=== PATIENT | male | born 1940 | race Caucasian/White ===

== ENCOUNTER 2016-12-09 08:32 | Day surgery (SDC) | payer MEDICARE ==
--- NOTE | 2016-12-09 07:35 | History and Physical Report ---
DATE OF EVALUATION: 12/09/2016. CHIEF COMPLAINT AND HISTORY OF CHIEF COMPLAINT: This patient presents with a history of a spinal cord stimulator implant on 09/04/2015. He has had migration with loss of stimulation into the appropriate areas. Due to the inability to, on a conservative level, regain stimulation patterns, he is here for revision. We will attempt to move the leads up or down in an attempt to regain stimulation patterns. If unsuccessful, the system will be removed. PAST MEDICAL HISTORY: Chronic obstructive pulmonary disease. REVIEW OF SYSTEMS: The patient seems appropriate and in no acute distress. The remainder of the systems review shows blood pressure problems, peripheral edema, reflux disease, degenerative arthritis, depression, difficulty sleeping, and difficulty with hearing. SOCIAL AND FAMILY HISTORY: Diabetes, hypertension, caffeine. PAST SURGICAL HISTORY: Lumbar spinal surgery, spinal cord stimulator implant. ALLERGIES: None listed. MEDICATIONS ON ADMISSION: To be provided. PHYSICAL EXAMINATION: General: Height is 5 feet, 7 inches. Weight is 270 pounds. Vital Signs: Unavailable. HEENT: Within normal limits. Lungs: Clear. Heart: Regular rate and rhythm. Abdomen: Nontender. Musculoskeletal: Examination of the musculoskeletal system shows the primary pain to be a postlaminectomy radiculitis with pain moving into both lower extremities. The incisional sites for the leads and generator are both identified and are intact. Sensory jackson are intact. Neurologic: Cranial nerves are intact. IMPRESSIONS: 1. POSTLAMINECTOMY SYNDROME, ICD10 CODE M96.1. 2. LUMBAR RADICULITIS, ICD10 CODE M54.16 AND M54.17. 3. SPINAL CORD STIMULATOR NONFUNCTIONAL. PLANS: The patient is here for revision of the system. If we are unsuccessful in regaining stimulation, the device and the generator will be removed. All of the potential risks, side effects, and complications have been carefully reviewed and discussed. The patient understands and agrees. The procedure will be considered outpatient, although an overnight stay will be evaluated. Heriberto Vega D.O. Date Time JOB NUMBER: [id number] cc: Dr. Linda MCGRATH
[~2016-12-09 08:32] MED LIST: ACETAMINOPHEN 1000MG/100 ML PREMIX IV ONE; CEFAZOLIN 2 Gram 50 ML IVPB ONE; FAMOTIDINE 20MG TABLET PO ONE; MECLIZINE 25 MG TABLET PO ONE; METOCLOPRAMIDE 10 MG TABLET PO ONE
[2016-12-09] MEDS ORDERED: BUPIVACAINE 0.5% W/EPI MPF 30 ML VIAL IVP ONE (13:17)
[2016-12-09] MEDS ORDERED: CEFAZOLIN 1G VIAL IM ONE (13:17)
[2016-12-09] MEDS ORDERED: LIDOCAINE 1% W/EPI 1:200,000 MPF 30ML SQ ONE (13:17)
[2016-12-09] MEDS ORDERED: LIDOCAINE 2% MDV (20MG/ML) 20ML VIAL IV ONE (13:22)
[2016-12-09] MEDS ORDERED: PROPOFOL 10 MG/ML VIAL IV ONE (13:22)
[2016-12-09] MEDS ORDERED: FLUMAZENIL 1MG/10ML VIAL IV ONE (13:22)
[2016-12-09] MEDS ORDERED: MIDAZOLAM HCL 2MG/2ML VIAL IV ONE (13:22)
[2016-12-09] MEDS ORDERED: *PACU ONLY* KETAMINE HCL 10 MG/ML (20ML) VIAL IV ONE (13:22)
[2016-12-09] MEDS ORDERED: FENTANYL PF 100MCG/2ML VIAL IV ONE (13:22)
--- NOTE | 2016-12-10 14:51 | Operative Note - [place] ---
DATE OF SURGERY: 12/09/16 PREOPERATIVE DIAGNOSES: 1. POST LUMBAR LAMINECTOMY SYNDROME, ICD-10 CODE = M96.1. 2. LUMBAR RADICULITIS, ICD-10 CODE = M54.16 AND M54.17. 3. SPINAL CORD STIMULATOR, TWO LEADS, INTERNAL GENERATOR NONFUNCTIONAL. SURGERY: 1. FLUOROSCOPICALLY-GUIDED SUBCUTANEOUS DISSECTION AND REMOVAL OF SPINAL CORD STIMULATOR LEAD 1 AND SPINAL CORD STIMULATOR LEAD 2. 2. FLUOROSCOPICALLY-GUIDED EPIDURAL ACCESS 10/[address] OF INTRODUCER OVER PREVIOUS LEAD. PLACEMENT OF SPINAL CORD STIMULATOR LEAD 1, A [employer] 16 WITH 16 ELECTRODES POSITIONED MIDLINE T7. ATTEMPT TO PUSH LEAD TO T6 UNSUCCESSFUL. 3. COMPLEX PROGRAMMING LEAD 1, 20 MINUTES. 4. REMOVAL OF SPINAL CORD STIMULATOR LEAD 1 UNSUCCESSFUL TRIAL. SURGEON: DIANA PIERRE D.O. ANESTHESIA: LOCAL SEDATION. ANESTHESIA PROVIDER: VIDHYA FLORES CRNA. INDICATION: This patient presents with a history of postlaminectomy radiculitis. Due to the failure of all therapy, a spinal cord stimulator was implanted on 09/04/15. Although initial results appeared to be quite good, over the last several months there appeared to be some migration confirmed by imaging showing the leads now at T7/8. The previous trial location T6 with success. Attempts at programming the system to regain stimulation patterns after the apparent migration were unsuccessful. He was then given the option to remove or revise; he opted to revise. PROCEDURE: Intravenous line, vital sign monitoring, IV sedation. Prepped, draped , sterile technique. Under imaging, the two stimulators were identified. The skin infiltrated, incision made, and subcutaneous dissection was conducted to the anchors. The leads were removed at the generator and pulled into the incisional site at the placement. Attempts to navigate the leads up above T8 were unsuccessful because of what appeared to be an obstruction at the interspace upper end 7. Leads were removed because of unsuccessful stimulation. Using an epidural access guide over one of the two previous removed leads, a new spinal cord stimulator identified as lead 1, a [employer] 16 was advanced under imaging, positioned in the epidural space at the upper endplate of T7. Complex programming of this lead was unsuccessful in getting stimulation patterns into the low back. Attempts to navigate this new lead above the upper endplate T7 were also unsuccessful. The patient had incomplete stimulation. We were unable to pass the new inserted lead into T6 and we were unable to gain appropriate stimulation patterns into the low back. For that reason, the revised lead was removed. Antibiotic irrigation. Bovie for hemostasis. The incisions were then closed Vicryl for fascia, running subcuticular Vicryl for skin. Dermabond closure system placed. He was transported to the Recovery Room stable. DISCHARGE INSTRUCTIONS: 1. The sites will remain clean and dry. No showering or bathing in any way that would disrupt the dressings although the Dermabond will allow showering. 2. Standard medications resumed including Levaquin, the antibiotic, 500 mg once a day for 14 days. 3. The patient will be seen in the office in 7-10 days to discuss his options. DIANA PIERRE D.O. Date & Time Dr. Mckeon JOB NUMBER: [id number] MTDD
== END 2016-12-09 12:12 | disposition home or self-care (01) ==
LOC: SUR 08:32
PROVIDERS: ATTEND Pain Medicine Interventional Pain Medicine
DX: T85.890A Other specified complication of nervous system prosthetic devices, implants and grafts, initial encounter (principal); M96.1 Postlaminectomy syndrome, not elsewhere classified; M54.16 Radiculopathy, lumbar region; M54.17 Radiculopathy, lumbosacral region
CPT/HCPCS: 63650; 63688; 01936; J3010; J0690